=== PATIENT | male | born 1980 | race Hispanic/Latino ===

== ENCOUNTER 2018-06-09 03:26 | Emergency (ER) | payer OTHER ==
[~2018-06-09] VITALS: Ht 185.4 cm; Wt 138.2 kg
[~2018-06-09 03:26] MED LIST: AUGMENTIN875 MG PO; IBUPROFEN800 MG PO; LEVOFLOXACIN500 MG PO; NOHOMEMEDS; PERCOCET 5/31 TABLET PO; ROXICET 5-3251 EACH PO
[2018-06-09] MEDS ORDERED: FLEXERIL10 MG PO (04:24)
[2018-06-09 04:50] VITALS: BP 121/80
== END 2018-06-09 04:50 | disposition home or self-care (01) ==
LOC: EME 03:26
DX: M54.6 Pain in thoracic spine (principal)
CPT/HCPCS: 99281; 99283